=== PATIENT | female | born 1985 | race Caucasian/White ===

== ENCOUNTER 2016-08-24 22:24 | Inpatient (IN) | payer BC ==
[~2016-08-24] VITALS: Ht 165.1 cm; Wt 70.0 kg
[~2016-08-24 22:24] MED LIST: FERR47.57 PO; HYDR-3240 PO; IBUP200T48 PO
[2016-08-24] MEDS ORDERED: FENTANYL PF 100 MCG/2ML ONE (23:31)
[2016-08-24] MEDS: LACTATED RINGERS 1,000 ML IV SCH (23:47)
[2016-08-25] MEDS ORDERED: FENTANYL PF 100 MCG/2ML IVPush PRN
[2016-08-25] MEDS: LACTATED RINGERS 1,000 ML IV SCH ×7 (00:44→22:12)
[2016-08-25] MEDS ORDERED: LACTATED RINGERS 1,000 ML IV SCH ×2 (01:00→01:02)
[2016-08-25] MEDS ORDERED: METOCLOPRAMIDE 5 MG/ML, 2ML ONE (01:01)
[2016-08-25] MEDS ORDERED: SODIUM CITRATE/CITRIC ACID 30 ML UDC ONE (01:01)
[2016-08-25] MEDS ORDERED: OXYTOCIN 30U/ 0.9% NaCL 500ML 500 ML IV SCH (01:02)
[2016-08-25] MEDS ORDERED: NEWBORN KIT ONE (01:13)
[2016-08-25] MEDS ORDERED: OXYTOCIN 30U/ 0.9% NaCL 500ML 500 ML ONE (01:13)
[2016-08-25] MEDS ORDERED: SODIUM CITRATE/CITRIC ACID 30 ML UDC PO ONE (01:30)
[2016-08-25] MEDS ORDERED: METOCLOPRAMIDE 5 MG/ML, 2ML IV ONE (01:30)
[2016-08-25] MEDS ORDERED: FENTANYL PF 100 MCG/2ML ONE (01:48)
[2016-08-25] MEDS: OXYTOCIN 30U/ 0.9% NaCL 500ML 500 ML IV SCH ×3 (02:12→22:12)
[2016-08-25] MEDS ORDERED: CALCIUM CARBONATE 500 MG TAB.CHEW PO PRN (02:30)
[2016-08-25] MEDS ORDERED: ONDANSETRON 2MG/ML, 2ML IV PRN (02:30)
[2016-08-25] MEDS ORDERED: SIMETHICONE 80 MG CHEW TAB PO PRN (02:30)
[2016-08-25] MEDS: KETOROLAC 30 MG/1 ML IV SCH ×4 (02:30→22:07)
[2016-08-25] MEDS ORDERED: METOCLOPRAMIDE 5 MG/ML, 2ML IV PRN (02:30)
[2016-08-25] MEDS ORDERED: ACETAMINOPHEN 325 MG TABLET PO PRN (02:30)
[2016-08-25] MEDS ORDERED: FENTANYL PF 100 MCG/2ML IV PRN (03:30)
[2016-08-25] MEDS ORDERED: ONDANSETRON 2MG/ML, 2ML IVPush PRN (03:30)
[2016-08-25] MEDS ORDERED: OXYcodone 5 MG/5 ML ORAL.SOL UDC PO PRN (03:30)
[2016-08-25] MEDS ORDERED: MEPERIDINE/PF 25MG/0.5ML IVPush PRN (03:30)
[2016-08-25] MEDS ORDERED: morphine SULFATE 10 MG/ML, 1ML IV PRN (03:30)
[2016-08-25 04:50] VITALS: BP 102/66
[2016-08-25] MEDS: OXYcodone/APAP 5/325MG TABLET PO PRN ×3 (06:02→22:07)
[2016-08-25 08:00] VITALS: BP 112/67
[2016-08-25] MEDS: HYDROmorphone 1 MG/ML, 1ML IV PRN ×3 (09:07→16:49)
[2016-08-25] MEDS: PRENATAL VIT/IRON/FA 1 EACH TABLET PO SCH (09:07)
[2016-08-25] MEDS: DOCUSATE 100 MG CAPSULE PO PRN ×2 (09:07→22:07)
[2016-08-25] MEDS: OXYcodone IR 5MG TABLET PO PRN ×2 (10:11→13:59)
[2016-08-25 11:26] LABS: DIFF TOTAL CELLS COUNTED 100 CELL DIFF; VERIFY COUNTS? YES
[2016-08-25] MEDS ORDERED: OXYTOCIN 10 UNITS/ML, 1ML ONE (11:49)
[2016-08-25] MEDS ORDERED: CEFAZOLIN 1,000 MG ONE (11:49)
[2016-08-25] MEDS ORDERED: KETOROLAC 30 MG/1 ML ONE (11:49)
[2016-08-25 12:00] VITALS: BP 121/80
[2016-08-25 16:00] VITALS: BP 115/75
[2016-08-25 20:50] VITALS: BP 109/70
[2016-08-26] MEDS: LACTATED RINGERS 1,000 ML IV SCH ×5 (01:40→18:12)
[2016-08-26] MEDS: OXYcodone/APAP 5/325MG TABLET PO PRN ×3 (01:59→12:07)
[2016-08-26] MEDS: KETOROLAC 30 MG/1 ML IV SCH ×5 (03:55→21:30)
[2016-08-26 07:15] VITALS: BP 112/77
[2016-08-26] MEDS: OXYcodone IR 5MG TABLET PO PRN ×3 (08:04→21:00)
[2016-08-26] MEDS: DOCUSATE 100 MG CAPSULE PO PRN ×2 (08:04→21:00)
[2016-08-26] MEDS: PRENATAL VIT/IRON/FA 1 EACH TABLET PO SCH (08:04)
[2016-08-26] MEDS: OXYTOCIN 30U/ 0.9% NaCL 500ML 500 ML IV SCH ×2 (08:12→18:12)
[2016-08-26] MEDS: IBUPROFEN 600 MG TABLET PO PRN ×3 (10:17→22:06)
[2016-08-26 21:05] VITALS: BP 114/78
[2016-08-27] MEDS: OXYcodone/APAP 5/325MG TABLET PO PRN ×3 (00:58→18:03)
[2016-08-27] MEDS: LACTATED RINGERS 1,000 ML IV SCH ×5 (02:12→18:12)
[2016-08-27] MEDS: OXYTOCIN 30U/ 0.9% NaCL 500ML 500 ML IV SCH ×2 (04:12→14:12)
[2016-08-27] MEDS: OXYcodone IR 5MG TABLET PO PRN ×3 (05:46→22:16)
[2016-08-27] MEDS: IBUPROFEN 600 MG TABLET PO PRN ×3 (05:47→20:27)
[2016-08-27 08:00] VITALS: BP 119/80
[2016-08-27] MEDS: PRENATAL VIT/IRON/FA 1 EACH TABLET PO SCH (09:28)
[2016-08-27] MEDS: DOCUSATE 100 MG CAPSULE PO PRN ×2 (09:28→20:27)
[2016-08-27 20:00] VITALS: BP 121/79
[2016-08-28] MEDS: LACTATED RINGERS 1,000 ML IV SCH ×4 (00:12→10:12)
[2016-08-28] MEDS: OXYTOCIN 30U/ 0.9% NaCL 500ML 500 ML IV SCH ×2 (00:12→10:12)
[2016-08-28] MEDS: OXYcodone/APAP 5/325MG TABLET PO PRN ×2 (02:27→11:17)
[2016-08-28] MEDS: IBUPROFEN 600 MG TABLET PO PRN ×2 (02:27→08:32)
[2016-08-28] MEDS ORDERED: OXYC-302 PO (03:00)
[2016-08-28] MEDS ORDERED: IBUP-1222 PO (03:01)
[2016-08-28] MEDS ORDERED: DOCU-30 PO (03:04)
[2016-08-28] MEDS: OXYcodone IR 5MG TABLET PO PRN (06:48)
[2016-08-28 07:20] VITALS: BP 112/70
[2016-08-28] MEDS: DOCUSATE 100 MG CAPSULE PO PRN (08:17)
[2016-08-28] MEDS: PRENATAL VIT/IRON/FA 1 EACH TABLET PO SCH (08:17)
== END 2016-08-28 13:51 | disposition home or self-care (01) | DRG 765 ==
LOC: LDOP 22:24 → LDIP 08-25 01:05 → 2NW 08-25 04:30
PROVIDERS: ADMIT Specialist; ATTEND Specialist
PROC: 10D00Z1 Extraction of Products of Conception, Low, Open Approach (ICD-10-PCS; principal; 2016-08-25)
PROC: 0UB70ZZ Excision of Bilateral Fallopian Tubes, Open Approach (ICD-10-PCS; 2016-08-25)
DX: O34.211 Maternal care for low transverse scar from previous cesarean delivery (principal); O99.12 Other diseases of the blood and blood-forming organs and certain disorders involving the immune mechanism complicating childbirth; Z37.0 Single live birth; Z3A.38 38 weeks gestation of pregnancy; Z30.2 Encounter for sterilization; D69.6 Thrombocytopenia, unspecified
CPT/HCPCS: 36415; 85025; 86850; 86900; 88302; J0690; J1170; J1885; J3010; J2590; J2765; J7120